=== PATIENT | male | born 1995 | race Caucasian/White ===

== ENCOUNTER 2017-07-05 16:22 | Emergency (ER) | payer OTHER ==
[~2017-07-05] VITALS: Ht 182.9 cm; Wt 81.8 kg
[2017-07-05 16:23] VITALS: BP 136/64; PULSE 110; RESP 20; TEMP 102.2; O2SAT 100
--- NOTE | 2017-07-05 16:57 | PD ---
HPI Chief Complaint: Fever Time Seen by Provider: 16:56 Travel History International Travel<30 days: No Contact w/Intl Traveler<30days: No Traveled to known affect area: No History of Present Illness HPI 21-year-old male came to the emergency room with history of sore throat, pain during swallowing, headache, neck pain and fever since yesterday. Patient lives in a dorm and does not know of any sick contacts. Seen by the dorm medical person and was prescribed 800 mg of Motrin every 8 hours. Patient says he last took the last dose of Motrin at 2 PM. When he came to triage his temperature was 102.5. Patient is awake and answering questions appropriately. He does not appear to be in significant distress. He otherwise is a healthy person. No history of vomiting or diarrhea. [facility] Past Medical History Narrative Medical List of his past medical, surgical, social and family history is reviewed from the nursing note. Social History Tobacco Use: Yes Allergies-Medications (Allergen,Severity, Reaction): Coded Allergies: No Known Allergies (Unverified , 07/05/17) Comments No known drug allergies. Reported Meds & Prescriptions Reported Meds & Active Scripts Active Prednisone 20 Mg Tab 20 Mg PO BID Narrative Medication List of his home medications reviewed from the nursing note. Review of Systems Except as stated in HPI: all other systems reviewed are Neg General / Constitutional: Positive: Fever HENT: Positive: Headaches, Sore Throat Physical Exam Narrative GENERAL: Awake, alert, mild distress SKIN: Focused skin assessment warm/dry. HEAD: Atraumatic. Normocephalic. EYES: Pupils equal and round. No scleral icterus. No injection or drainage. ENT: No nasal bleeding or discharge. Mucous membranes pink and moist. Pharynx was erythematous and slight exudate. NECK: Trachea midline. No JVD. Neck was supple. CARDIOVASCULAR: Regular rate and rhythm. No murmur appreciated. RESPIRATORY: No accessory muscle use. Clear to auscultation. Breath sounds equal bilaterally. GASTROINTESTINAL: Abdomen soft, non-tender, nondistended. Hepatic and splenic margins not palpable. MUSCULOSKELETAL: No obvious deformities. No clubbing. No cyanosis. No edema. NEUROLOGICAL: Awake and alert. No obvious cranial nerve deficits. Motor grossly within normal limits. Normal speech. PSYCHIATRIC: Appropriate mood and affect; insight and judgment normal. Data Data Last Documented VS Orders Orders Complete Blood Count With Diff (07/05/17 16:32) Comprehensive Metabolic Panel (07/05/17 16:32) Lactic Acid Sepsis Protocol (07/05/17 16:32) Urinalysis - C+S If Indicated (07/05/17 16:32) Influenzae A/B Antigen (07/05/17 16:32) Blood Culture (07/05/17 16:32) Chest, Pa & Lat (07/05/17 16:32) Group A Rapid Strep Screen (07/05/17 16:32) Monoscreen (07/05/17 16:34) Sodium Chlor 0.9% 1000 Ml Inj (Ns 1000 M (07/05/17 17:15) Acetaminophen (Tylenol) (07/05/17 17:15) Ondansetron Inj (Zofran Inj) (07/05/17 18:45) Strep Culture (Group A) (07/05/17 17:02) Dexamethasone Inj (Decadron Inj) (07/05/17 19:45) Ed Discharge Order (07/05/17 19:47) Labs Laboratory Tests Test 07/05/17 17:02 07/05/17 17:10 White Blood Count 10.6 TH/MM3 Red Blood Count 4.85 MIL/MM3 Hemoglobin 14.1 GM/DL Hematocrit 40.8 % Mean Corpuscular Volume 84.1 FL Mean Corpuscular Hemoglobin 29.1 PG Mean Corpuscular Hemoglobin Concent 34.6 % Red Cell Distribution Width 13.5 % Platelet Count 128 TH/MM3 Mean Platelet Volume 9.7 FL Neutrophils (%) (Auto) 85.7 % Lymphocytes (%) (Auto) 7.2 % Monocytes (%) (Auto) 6.9 % Eosinophils (%) (Auto) 0.1 % Basophils (%) (Auto) 0.1 % Neutrophils # (Auto) 9.0 TH/MM3 Lymphocytes # (Auto) 0.8 TH/MM3 Monocytes # (Auto) 0.7 TH/MM3 Eosinophils # (Auto) 0.0 TH/MM3 Basophils # (Auto) 0.0 TH/MM3 CBC Comment DIFF FINAL Differential Comment Urine Color YELLOW Urine Turbidity CLEAR Urine pH 6.5 Urine Specific [place] 1.029 Urine Protein 100 mg/dL Urine Glucose (UA) NEG mg/dL Urine Ketones TRACE mg/dL Urine Occult Blood SMALL Urine Nitrite NEG Urine Bilirubin NEG Urine Urobilinogen 2.0 MG/DL Urine Leukocyte Esterase NEG Urine RBC 4 /hpf Urine WBC 2 /hpf Urine Squamous Epithelial Cells <1 /hpf Urine Mucus MOD /lpf Microscopic Urinalysis Comment CATH-CULT NOT IND Blood Urea Nitrogen 9 MG/DL Creatinine 1.26 MG/DL Random Glucose 86 MG/DL Total Protein 7.8 GM/DL Albumin 3.7 GM/DL Calcium Level 9.0 MG/DL Alkaline Phosphatase 65 U/L Aspartate Amino Transf (AST/SGOT) 12 U/L Alanine Aminotransferase (ALT/SGPT) 28 U/L Total Bilirubin 0.7 MG/DL Sodium Level 138 MEQ/L Potassium Level 3.6 MEQ/L Chloride Level 103 MEQ/L Carbon Dioxide Level 28.4 MEQ/L Anion Gap 7 MEQ/L Estimat Glomerular Filtration Rate 73 ML/MIN Monoscreen NEG Lactic Acid Level 1.3 mmol/L MDM Medical Decision Making Medical Screen Exam Complete: Yes Emergency Medical Condition: Yes Medical Record Reviewed: Yes Differential Diagnosis Strep pharyngitis, infectious mononucleosis, viral illness Narrative Course 6:37 PM blood test results are back. Patient has normal CBC and chemistry. Influenza is negative. Awaiting for the mono screen and rapid strep. He was given 1 L of IV fluid bolus and Tylenol for his fever and headache. UA was suggestive of some dehydration. If the rapid strep is negative I'll discharge him home with diagnosis of viral illness. 7:05 PM rapid strep is still pending. Case has been signed over to the oncoming physician. In my opinion if rapid strep is negative patient has viral syndrome and could be discharged home. [place] was negative. Procedures EKG Prior to Arrival: No Scripts Prednisone (Prednisone) 20 Mg Tab 20 MG PO BID, #10 TAB 0 Refills Prov: Kvng Vidal MD 07/05/17 Vibha Thakkar MD Jul 05, 2017 16:56
[2017-07-05] MEDS ORDERED: SODIUM CHLOR 0.9% 1000 ML INJ 1,000 ML IV ONE (17:15)
[2017-07-05] MEDS ORDERED: ACETAMINOPHEN 325 MG TAB PO ONE (17:15)
--- NOTE | 2017-07-05 17:50 | RADRPT ---
EXAM DATE/TIME: 07/05/2017 17:41 [place] COMPARISON: No previous studies available for comparison. INDICATIONS : Patient complains of headaches and has fever. MEDICAL HISTORY : None. SURGICAL HISTORY : None. ENCOUNTER: Initial ACUITY: 2 days PAIN SCORE: 8/10 LOCATION: chest FINDINGS: PA and lateral views of the chest demonstrate the lungs to be symmetrically aerated without evidence of mass, infiltrate or effusion. The cardiomediastinal contours are unremarkable. Osseous structure s are intact. CONCLUSION: No acute disease. Darci Betancourt MD on July 05, 2017 at 17:47 Board Certified Radiologist. This report was verified electronically.
[2017-07-05 17:57] LABS: BASOPHIL % 0.1 % (0.0-2.0); EOSINOPHIL % 0.1 % (0.0-4.0); HEMATOCRIT 40.8 % (39.0-51.0); HEMO FLAGS DIFF FINAL; LYMPH % 7.2 % (9.0-44.0); LYMPHOCYTE # 0.8 TH/MM3 (1.0-4.8); MEAN CELL VOLUME 84.1 FL (80.0-100.0); MEAN CORPUSCULAR HEMOGLOBIN 29.1 PG (27.0-34.0); MEAN CORPUSCULAR HGB CONC 34.6 % (32.0-36.0); MONO % 6.9 % (0.0-8.0); NEUT % 85.7 % (16.0-70.0); PLATELET COUNT 128 TH/MM3 (150-450); RED BLOOD COUNT 4.85 MIL/MM3 (4.50-5.90); RED CELL DISTRIBUTION WIDTH 13.5 % (11.6-17.2); WHITE BLOOD COUNT 10.6 TH/MM3 (4.0-11.0)
[2017-07-05 18:01] LABS: BLOOD, URINE SMALL (NEG); GLUCOSE,URINE NEG (NEG); KETONE, URINE TRACE mg/dL (NEG); MUCUS URINE MOD /lpf (OCC); NITRITE,URINE NEG (NEG); PH, URINE 6.5 (5.0-8.5); SQUAMOUS EPITHELIAL CELL URINE <1 /hpf (0-5); URINE COLOR YELLOW (YELLW/STRAW)
[2017-07-05 18:05] LABS: COMMENT (UR) CATH-CULT NOT IND; CULTURE IF INDICATED CATH CULTURE NOT IND
[2017-07-05 18:19] LABS: ALT (GPT) 28 U/L (9-52); ANION GAP 7 MEQ/L (5-15); AST (GOT) 12 U/L (15-39); BICARBONATE 28.4 MEQ/L (21.0-32.0); BLOOD UREA NITROGEN 9 MG/DL (7-18); CHLORIDE 103 MEQ/L (98-107); GLOMERULAR FILTRATION RATE 73 ML/MIN (>89); POTASSIUM 3.6 MEQ/L (3.5-5.1); SODIUM (NA) 138 MEQ/L (136-145)
[2017-07-05 18:22] LABS: ALKALINE PHOSPHATASE 65 U/L (45-117); TOTAL BILIRUBIN ADULT 0.7 MG/DL (0.2-1.0)
[2017-07-05] MEDS ORDERED: ONDANSETRON HCL 4 MG/2 ML VIAL IV PUSH ONE (18:45)
[2017-07-05 19:19] VITALS: BP 110/53; PULSE 84; RESP 16
--- NOTE | 2017-07-05 19:40 | PD ---
Physical Exam Narrative Patient was seen by ED physician and signed out to me. Data Data Last Documented VS Vital Signs Date Time Temp Pulse Resp B/P (MAP) Pulse Ox O2 Delivery O2 Flow Rate FiO2 07/05/17 19:19 84 16 110/53 (72) Room Air 07/05/17 16:23 102.2 100 Orders Orders Complete Blood Count With Diff (07/05/17 16:32) Comprehensive Metabolic Panel (07/05/17 16:32) Lactic Acid Sepsis Protocol (07/05/17 16:32) Urinalysis - C+S If Indicated (07/05/17 16:32) Influenzae A/B Antigen (07/05/17 16:32) Blood Culture (07/05/17 16:32) Chest, Pa & Lat (07/05/17 16:32) Group A Rapid Strep Screen (07/05/17 16:32) Monoscreen (07/05/17 16:34) Sodium Chlor 0.9% 1000 Ml Inj (Ns 1000 M (07/05/17 17:15) Acetaminophen (Tylenol) (07/05/17 17:15) Ondansetron Inj (Zofran Inj) (07/05/17 18:45) Strep Culture (Group A) (07/05/17 17:02) Dexamethasone Inj (Decadron Inj) (07/05/17 19:45) Labs Laboratory Tests Test 07/05/17 17:02 07/05/17 17:10 White Blood Count 10.6 TH/MM3 Red Blood Count 4.85 MIL/MM3 Hemoglobin 14.1 GM/DL Hematocrit 40.8 % Mean Corpuscular Volume 84.1 FL Mean Corpuscular Hemoglobin 29.1 PG Mean Corpuscular Hemoglobin Concent 34.6 % Red Cell Distribution Width 13.5 % Platelet Count 128 TH/MM3 Mean Platelet Volume 9.7 FL Neutrophils (%) (Auto) 85.7 % Lymphocytes (%) (Auto) 7.2 % Monocytes (%) (Auto) 6.9 % Eosinophils (%) (Auto) 0.1 % Basophils (%) (Auto) 0.1 % Neutrophils # (Auto) 9.0 TH/MM3 Lymphocytes # (Auto) 0.8 TH/MM3 Monocytes # (Auto) 0.7 TH/MM3 Eosinophils # (Auto) 0.0 TH/MM3 Basophils # (Auto) 0.0 TH/MM3 CBC Comment DIFF FINAL Differential Comment Urine Color YELLOW Urine Turbidity CLEAR Urine pH 6.5 Urine Specific [place] 1.029 Urine Protein 100 mg/dL Urine Glucose (UA) NEG mg/dL Urine Ketones TRACE mg/dL Urine Occult Blood SMALL Urine Nitrite NEG Urine Bilirubin NEG Urine Urobilinogen 2.0 MG/DL Urine Leukocyte Esterase NEG Urine RBC 4 /hpf Urine WBC 2 /hpf Urine Squamous Epithelial Cells <1 /hpf Urine Mucus MOD /lpf Microscopic Urinalysis Comment CATH-CULT NOT IND Blood Urea Nitrogen 9 MG/DL Creatinine 1.26 MG/DL Random Glucose 86 MG/DL Total Protein 7.8 GM/DL Albumin 3.7 GM/DL Calcium Level 9.0 MG/DL Alkaline Phosphatase 65 U/L Aspartate Amino Transf (AST/SGOT) 12 U/L Alanine Aminotransferase (ALT/SGPT) 28 U/L Total Bilirubin 0.7 MG/DL Sodium Level 138 MEQ/L Potassium Level 3.6 MEQ/L Chloride Level 103 MEQ/L Carbon Dioxide Level 28.4 MEQ/L Anion Gap 7 MEQ/L Estimat Glomerular Filtration Rate 73 ML/MIN Monoscreen NEG Lactic Acid Level 1.3 mmol/L MDM Supervised Visit with MAYELA: No Interpretation(s) 8 PM. Last Impressions Chest X-Ray 07/05/17 1632 Signed Impressions: Service Date/Time: Wednesday, July 05, 2017 17:41 - CONCLUSION: No acute disease. Darci Betancourt MD 8 PM. CBC within normal limit. CMP within normal limit. Lactic acid 1.3. UA negative. Specific gravity 1.029. Strep screen negative. White test negative. Narrative Course 21-year-old male with sore throat. CBC normal. Monotest negative. Strep negative. Most likely viral. Decadron 8 mg IV. Diagnosis Primary Impression: Pharyngitis Qualified Codes: J02.9 - Acute pharyngitis, unspecified Patient Instructions: General Instructions Additional Instruction: Prednisone as directed. Tylenol or ibuprofen for fever headache. Follow-up with personal physician. Return if worse. Med/Other Pt SpecificInfo: Prescription(s) given Scripts Prednisone (Prednisone) 20 Mg Tab 20 MG PO BID, #10 TAB 0 Refills Prov: Kvng Vidal MD 07/05/17 Disposition: 01 DISCHARGE HOME Condition: Stable Kvng Vidal MD Jul 05, 2017 19:40
[2017-07-05] MEDS ORDERED: DEXAMETHASONE SOD PHOS 4 MG/ML VIAL IV PUSH ONE (19:45)
[2017-07-05] MEDS ORDERED: PRED20 PO (19:46)
== END 2017-07-05 19:58 | disposition home or self-care (01) ==
LOC: NEPE 16:22
DX: J02.9 Acute pharyngitis, unspecified (principal); R51 Headache; R50.9 Fever, unspecified; Z72.0 Tobacco use
CPT/HCPCS: 71020; 80053; 81001; 83605; 85025; 86308; 87040; 87081; 87804; 87880; 96361; 96374; 96375; 99285; J1100; J7030